=== PATIENT | female | born 1995 ===

== ENCOUNTER 2022-02-25 10:41 | Outpatient (CLI) | payer OTHER | END 2022-02-25 12:05 | disposition home or self-care (01) | LOC: PRENATAL 10:41 | PROVIDERS: ATTEND Obstetrics & Gynecology Maternal & Fetal Medicine | DX: O36.80X0 Pregnancy with inconclusive fetal viability, not applicable or unspecified (principal); Z36.0 Encounter for antenatal screening for chromosomal anomalies; Z3A.13 13 weeks gestation of pregnancy ==

== ENCOUNTER 2022-04-12 16:01 | Outpatient (CLI) | payer OTHER | END 2022-04-12 17:01 | disposition home or self-care (01) | LOC: PRENATAL 16:01 | PROVIDERS: ATTEND Obstetrics & Gynecology Maternal & Fetal Medicine | DX: O35.9XX0 Maternal care for (suspected) fetal abnormality and damage, unspecified, not applicable or unspecified (principal); O35.3XX0 Maternal care for (suspected) damage to fetus from viral disease in mother, not applicable or unspecified; Z3A.20 20 weeks gestation of pregnancy ==

== ENCOUNTER 2022-08-17 09:09 | Inpatient (IN) | payer OTHER ==
[~2022-08-17] VITALS: Ht 152.4 cm; Wt 87.5 kg
[2022-08-24] MEDS ORDERED: PRENATAL CAPLE1 EAC1 PO (11:06)
== END 2022-08-26 14:14 | disposition home or self-care (01) | DRG 807 ==
LOC: LDR 08-24 02:44 → OB/GYN 08-24 15:49
PROVIDERS: ADMIT Specialist; ATTEND Specialist
PROC: 10E0XZZ Delivery of Products of Conception, External Approach (ICD-10-PCS; principal; 2022-08-24)
PROC: 0HQ9XZZ Repair Perineum Skin, External Approach (ICD-10-PCS; 2022-08-24)
PROC: 4A1HXCZ Monitoring of Products of Conception, Cardiac Rate, External Approach (ICD-10-PCS; 2022-08-24)
DX: O70.1 Second degree perineal laceration during delivery (principal); Z37.0 Single live birth; Z3A.39 39 weeks gestation of pregnancy; Z20.822 Contact with and (suspected) exposure to COVID-19